=== PATIENT | female | born 1985 | race Caucasian/White ===

== ENCOUNTER 2016-10-11 12:35 | Emergency (ER) | payer MEDICAID ==
[~2016-10-11] VITALS: Ht 170.2 cm; Wt 61.5 kg
[~2016-10-11 12:35] MED LIST: DICL50TA3 PO; METH750T2 PO
[2016-10-11 13:35] VITALS: BP 121/66; PULSE 85; RESP 16; TEMP 98.1; O2SAT 100
--- NOTE | 2016-10-11 13:40 | PD ---
HPI Chief Complaint: Pain: Acute or Chronic Time Seen by Provider: 13:36 Travel History International Travel<30 days: No Contact w/Intl Traveler<30days: No Traveled to known affect area: No History of Present Illness HPI 31-year-old female with no significant past medical issues, presents to the ER today for 5 days history of left anterior chest wall pains that she rates currently an 8 out of 10, worsens with movements and deep breaths. She denies any coughing, shortness of breath, fevers, nausea, vomiting, or any other symptoms. She states that she had been diagnosed with costochondritis about 2 years ago but it was in the posterior part of her chest wall. Modifying Factors: Worse with movement and deep breaths Associated Signs & Symptoms: Left-sided chest wall pains Risk Factors: None PFSH Past Medical History Diminished Hearing: No Social History Alcohol Use: Yes (RARE) Tobacco Use: Yes (1/2 PPD) Substance Use: Yes (MARIJUANA, OCCASIONALLY) Allergies-Medications (Allergen,Severity, Reaction): Coded Allergies: No Known Allergies (Unverified , 10/11/16) Reported Meds & Prescriptions Reported Meds & Active Scripts Active No Active Prescriptions or Reported Medications Review of Systems Except as stated in HPI: all other systems reviewed are Neg Physical Exam Narrative GENERAL: Well-developed thin, young white female patient currently in moderate distress secondary to pain. Awake and oriented 3. Sitting up. SKIN: Warm and dry. HEAD: Atraumatic. Normocephalic. EYES: Pupils equal and round. No scleral icterus. No injection or drainage. ENT: No nasal bleeding or discharge. Mucous membranes pink and moist. NECK: Trachea midline. No JVD. CARDIOVASCULAR: Regular rate and rhythm. No murmur appreciated. CHEST: Tender palpation of the left anterior lower rib area in the midclavicular line without deformity or crepitance. No retractions or use of accessory muscles. RESPIRATORY: No accessory muscle use. Clear to auscultation. Breath sounds equal bilaterally. GASTROINTESTINAL: Abdomen soft, non-tender, nondistended. Hepatic and splenic margins not palpable. MUSCULOSKELETAL: No obvious deformities. No clubbing. No cyanosis. No edema. NEUROLOGICAL: Awake and alert. No obvious cranial nerve deficits. Motor grossly within normal limits. Normal speech. PSYCHIATRIC: Appropriate mood and affect; insight and judgment normal. Data Data Last Documented VS Vital Signs Date Time Temp Pulse Resp B/P Pulse Ox O2 Delivery O2 Flow Rate FiO2 10/11/16 13:35 98.1 85 16 121/66 100 Orders Complete Blood Count With Diff (10/11/16 13:36) Comprehensive Metabolic Panel (10/11/16 13:36) D-Dimer (10/11/16 13:36) Prothrombin Time / Inr (Pt) (10/11/16 13:36) Act Partial Throm Time (Ptt) (10/11/16 13:36) Lipase (10/11/16 13:36) Chest, Single Ap (10/11/16 13:36) Ecg Monitoring (10/11/16 13:36) Bilateral Bp Monitoring (10/11/16 13:36) Iv Access Insert/Monitor (10/11/16 13:36) Oximetry (10/11/16 13:36) Oxygen Administration (10/11/16 13:36) Sodium Chloride 0.9% Flush (Ns Flush) (10/11/16 13:45) Ed Urine Pregnancytest Poc (10/11/16 13:36) Acetamin-Hydrocod 325-5 Mg ([place] 5-325 (10/11/16 13:45) Labs Laboratory Tests Test 10/11/16 13:55 White Blood Count 6.8 TH/MM3 Red Blood Count 4.89 MIL/MM3 Hemoglobin 14.6 GM/DL Hematocrit 42.8 % Mean Corpuscular Volume 87.6 FL Mean Corpuscular Hemoglobin 29.9 PG Mean Corpuscular Hemoglobin 34.1 % Concent Red Cell Distribution Width 11.5 % Platelet Count 206 TH/MM3 Mean Platelet Volume 9.8 FL Neutrophils (%) (Auto) 56.8 % Lymphocytes (%) (Auto) 28.8 % Monocytes (%) (Auto) 6.3 % Eosinophils (%) (Auto) 3.9 % Basophils (%) (Auto) 4.2 % Neutrophils # (Auto) 3.8 TH/MM3 Lymphocytes # (Auto) 2.0 TH/MM3 Monocytes # (Auto) 0.4 TH/MM3 Eosinophils # (Auto) 0.3 TH/MM3 Basophils # (Auto) 0.3 TH/MM3 CBC Comment DIFF FINAL Differential Comment Prothrombin Time 10.7 SEC Prothromb Time International 1.0 RATIO Ratio Activated Partial 27.3 SEC Thromboplast Time D-Dimer Quantitative (PE/DVT) 0.28 MG/L FEU Sodium Level 140 MEQ/L Potassium Level 4.3 MEQ/L Chloride Level 105 MEQ/L Carbon Dioxide Level 27.3 MEQ/L Anion Gap 8 MEQ/L Blood Urea Nitrogen 9 MG/DL Creatinine 0.83 MG/DL Estimat Glomerular Filtration 80 ML/MIN Rate Random Glucose 96 MG/DL Calcium Level 9.1 MG/DL Total Bilirubin 0.8 MG/DL Aspartate Amino Transf 11 U/L (AST/SGOT) Alanine Aminotransferase 16 U/L (ALT/SGPT) Alkaline Phosphatase 77 U/L Total Protein 8.2 GM/DL Albumin 4.1 GM/DL Lipase 88 U/L MDM Medical Decision Making Medical Screen Exam Complete: Yes Emergency Medical Condition: Yes Medical Record Reviewed: Yes Interpretation(s) Laboratory Tests Test 10/11/16 13:55 Red Cell Distribution Width 11.5 % (11.6-17.2) Basophils (%) (Auto) 4.2 % (0.0-2.0) Basophils # (Auto) 0.3 TH/MM3 (0-0.2) Estimat Glomerular Filtration 80 ML/MIN (>89) Rate Aspartate Amino Transf 11 U/L (15-37) (AST/SGOT) Differential Diagnosis Left anterior chest wall painscostochondritis versus pleurisy versus PE versus pneumothorax versus pneumonia versus pancreatitis Narrative Course D-dimer is negative. Chest x-ray did not show any signs of acute pulmonary processes. At this point, symptoms are consistent with a costochondritis. My plan would be to give her symptomatic relief or pain and have her follow-up with primary care physician. Return for any worsening in symptoms as necessary. The plan has discussed with her and she states understanding. Diagnosis Primary Impression: Costochondritis Med/Other Pt SpecificInfo: Prescription(s) given Scripts Ibuprofen (Motrin Ib)200 Mg [id number] Mg PO Q6H PRN (PAIN SCALE 1 TO 10) #28 TAB Ref 0 Prov:Reji Wyatt MD 10/11/16 Disposition: 01 DISCHARGE HOME Condition: Stable Reji Wyatt MD Oct 11, 2016 13:40
[2016-10-11] MEDS ORDERED: SODIUM CHLORIDE 0.9% FLUSH 10 ML FLUSH IVF PRN (13:45)
[2016-10-11] MEDS ORDERED: ACETAMINOPHEN/HYDROcodone 325 MG/5 MG TAB PO ONE (13:45)
[2016-10-11 14:05] LABS: AUTOMATED NEUTROPHIL # 3.8 TH/MM3 (1.8-7.7); BASOPHIL # 0.3 TH/MM3 (0-0.2); BASOPHIL % 4.2 % (0.0-2.0); EOSINOPHIL # 0.3 TH/MM3 (0-0.4); EOSINOPHIL % 3.9 % (0.0-4.0); HEMATOCRIT 42.8 % (35.0-46.0); HEMO FLAGS DIFF FINAL; LYMPH % 28.8 % (9.0-44.0); MEAN CELL VOLUME 87.6 FL (80.0-100.0); MEAN CORPUSCULAR HEMOGLOBIN 29.9 PG (27.0-34.0); MEAN CORPUSCULAR HGB CONC 34.1 % (32.0-36.0); MONO % 6.3 % (0.0-8.0); NEUT % 56.8 % (16.0-70.0); PLATELET COUNT 206 TH/MM3 (150-450); RED BLOOD COUNT 4.89 MIL/MM3 (4.00-5.30); RED CELL DISTRIBUTION WIDTH 11.5 % (11.6-17.2); WHITE BLOOD COUNT 6.8 TH/MM3 (4.0-11.0)
[2016-10-11 14:13] LABS: CHLORIDE 105 MEQ/L (98-107); POTASSIUM 4.3 MEQ/L (3.5-5.1); SODIUM (NA) 140 MEQ/L (136-145)
[2016-10-11 14:18] LABS: ANION GAP 8 MEQ/L (5-15); BICARBONATE 27.3 MEQ/L (21.0-32.0); BLOOD UREA NITROGEN 9 MG/DL (7-18)
[2016-10-11 14:20] LABS: ALT (GPT) 16 U/L (10-53); AST (GOT) 11 U/L (15-37); GLOMERULAR FILTRATION RATE 80 ML/MIN (>89)
[2016-10-11 14:22] LABS: TOTAL BILIRUBIN ADULT 0.8 MG/DL (0.2-1.0)
[2016-10-11 14:23] LABS: ALKALINE PHOSPHATASE 77 U/L (45-117)
[2016-10-11 14:27] LABS: APTT (PATIENT) 27.3 SEC (24.3-30.1); PROTHROMBIN TIME - PATIENT 10.7 SEC (9.8-11.6)
--- NOTE | 2016-10-11 14:29 | RADHPO ---
EXAM DATE/TIME: 10/11/2016 13:45 [facility] COMPARISON: CHEST SINGLE AP, November 11, 2015, 21:54. INDICATIONS : Patient states chest pains under left breast. MEDICAL HISTORY : None. SURGICAL HISTORY : None. ENCOUNTER: Initial ACUITY: 3 days PAIN SCORE: 6/10 LOCATION: Bilateral chest FINDINGS: A single view of the chest demonstrates the lungs to be symmetrically aerated without evidence of mas s, infiltrate or effusion. The cardiomediastinal contours are unremarkable. Osseous structures are intact. CONCLUSION: No acute cardiopulmonary process. Richard Garcia MD on October 11, 2016 at 14:26 Board Certified Radiologist. This report was verified electronically.
[2016-10-11] MEDS ORDERED: MOTR200T4 PO (14:39)
[2016-10-11 15:15] VITALS: BP 126/62; PULSE 86; RESP 16; O2SAT 97
== END 2016-10-11 15:15 | disposition home or self-care (01) ==
LOC: PHED 12:35
DX: M94.0 Chondrocostal junction syndrome [Tietze] (principal)
CPT/HCPCS: 71010; 80053; 83690; 85025; 85379; 85610; 85730; 99283

== ENCOUNTER 2016-10-16 17:13 | Emergency (ER) | payer MEDICAID, OTHER ==
[~2016-10-16] VITALS: Ht 170.2 cm; Wt 61.5 kg
[~2016-10-16 17:13] MED LIST changes: -DICL50TA3 PO; -METH750T2 PO; +MOTR200T4 PO
[2016-10-16 17:30] VITALS: BP 115/75; PULSE 101; RESP 16; TEMP 98.6; O2SAT 97
--- NOTE | 2016-10-16 17:43 | PD ---
HPI Chief Complaint: Musculoskeletal Complaint Time Seen by Provider: 17:40 Travel History International Travel<30 days: No Contact w/Intl Traveler<30days: No Traveled to known affect area: No History of Present Illness HPI 31-year-old female presents to emergency Department with worsening ongoing left-sided thoracic wall and chest pain. Patient states the pain is gotten worse and she was last here week ago. At that time she had a full workup including a d-dimer chest x-ray, and basic labs. Patient states increase mucus with cough which is clear. Patient states the pain is worse with deep inspiration and movement. Denies fever, nausea, vomiting, or urinary symptoms. She denies any lower extremity pain or swelling. Denies any recent long travel. She has no significant history of injuries to the area. She denies any rash to the area. Patient is a smoker. Pain is a 9/10 at worst with movement and deep breath, but is 6/10 if she's guarding it. She has no known drug allergies. PFSH Past Medical History Diminished Hearing: No ?: Not LMP: 10/07/16 Social History Alcohol Use: Yes (Occ.) Tobacco Use: Yes (07/25 PPD) Substance Use: Yes (Marijuana occ.) Allergies-Medications (Allergen,Severity, Reaction): Coded Allergies: No Known Allergies (Unverified , 10/16/16) Reported Meds & Prescriptions Reported Meds & Active Scripts Active Tramadol (Tramadol HCl) 50 Mg Tab 50 Mg PO Q6H PRN Prednisone 20 Mg Tab 20 Mg PO BID Motrin Ib (Ibuprofen) 200 Mg Tab 600 Mg PO Q6H PRN Review of Systems Except as stated in HPI: all other systems reviewed are Neg General / Constitutional: No: Fever Eyes: No: Visual changes HENT: No: Headaches Cardiovascular: Positive: Chest Pain or Discomfort (see history present illness.) Respiratory: Positive: Cough, Shortness of Breath, Pleuritic Pain, No: Wheezing, Sneezing, Orthopnea, Hemoptysis Gastrointestinal: No: Nausea (due to pleuritic pain.), Vomiting, Diarrhea, Abdominal Pain Genitourinary: No: Urgency, Frequency, Dysuria Musculoskeletal: No: Pain Skin: No Rash Neurologic: No: Weakness Psychiatric: No: Depression Endocrine: No: Polydipsia Hematologic/Lymphatic: No: Easy Bruising Physical Exam Narrative GENERAL: Patient appears in moderate distress. Patient states she preferred to stand is sitting or laying down makes her pain worse. SKIN: Warm and dry. Color. Normal turgor. No rash. HEAD: Atraumatic. Normocephalic. EYES: Pupils equal and round. No scleral icterus. No injection or drainage. ENT: No nasal bleeding or discharge. Mucous membranes pink and moist. TMs are normal bilaterally. Throat is normal. Pharynx is normal. Airway is patent. NECK: Trachea midline. Neck is supple nontender. CARDIOVASCULAR: Regular rate and rhythm. No murmurs gallops or rubs appreciated. RESPIRATORY: No accessory muscle use. Clear to auscultation. Breath sounds equal bilaterally. Question of egophony on the left lower lung field. Patient is tender with palpation along the posterior and lateral thoracic wall without deformity or crepitus noted signs of trauma. GASTROINTESTINAL: Abdomen soft, non-tender, nondistended. Hepatic and splenic margins not palpable. MUSCULOSKELETAL: Extremities without clubbing, cyanosis, or edema. No obvious deformities. NEUROLOGICAL: Awake and alert. No obvious cranial nerve deficits. Motor grossly within normal limits. Five out of 5 muscle strength in the arms and legs. Normal speech. PSYCHIATRIC: Appropriate mood and affect; insight and judgment normal. Data Data Last Documented VS Vital Signs Date Time Temp Pulse Resp B/P Pulse Ox O2 Delivery O2 Flow Rate FiO2 10/16/16 20:43 64 20 105/58 98 10/16/16 18:06 Room Air 10/16/16 17:30 98.6 Orders Electrocardiogram (10/16/16 17:45) Ckmb (Isoenzyme) Profile (10/16/16 17:45) Complete Blood Count With Diff (10/16/16 17:45) Comprehensive Metabolic Panel (10/16/16 17:45) Magnesium (Mg) (10/16/16 17:45) Prothrombin Time / Inr (Pt) (10/16/16 17:45) Act Partial Throm Time (Ptt) (10/16/16 17:45) Troponin I (10/16/16 17:45) Ecg Monitoring (10/16/16 17:45) Bilateral Bp Monitoring (10/16/16 17:45) Iv Access Insert/Monitor (10/16/16 17:45) Oximetry (10/16/16 17:45) Oxygen Administration (10/16/16 17:45) Sodium Chloride 0.9% Flush (Ns Flush) (10/16/16 17:45) Ct Pulmonary Angiogram (10/16/16 17:45) Lipase (10/16/16 17:45) Urinalysis - C+S If Indicated (10/16/16 17:45) Sodium Chlor 0.9% 1000 Ml Inj (Ns 1000 M (10/16/16 17:45) Ketorolac Inj (Toradol Inj) (10/16/16 17:45) Iohexol 350 Inj (Omnipaque 350 Inj) (10/16/16 18:53) Prednisone (Deltasone) (10/16/16 20:45) Labs Laboratory Tests Test 10/16/16 10/16/16 17:55 18:05 Urine Collection Type CLEAN CATCH Urine Color YELLOW Urine Turbidity CLEAR Urine pH 5.5 Urine Specific [place] 1.009 Urine Protein NEG mg/dL Urine Glucose (UA) NEG mg/dL Urine Ketones NEG mg/dL Urine Occult Blood SMALL Urine Nitrite NEG Urine Bilirubin NEG Urine Leukocyte Esterase NEG Urine RBC 0-3 /hpf Urine WBC 0-2 /hpf Urine Squamous Epithelial > 8 /hpf Cells Urine Bacteria RARE /hpf Microscopic Urinalysis Comment CULT NOT INDICATED Urine Collection Time 17:55 White Blood Count 7.2 TH/MM3 Red Blood Count 4.34 MIL/MM3 Hemoglobin 13.3 GM/DL Hematocrit 37.8 % Mean Corpuscular Volume 87.1 FL Mean Corpuscular Hemoglobin 30.7 PG Mean Corpuscular Hemoglobin 35.3 % Concent Red Cell Distribution Width 11.7 % Platelet Count 188 TH/MM3 Mean Platelet Volume 9.6 FL Neutrophils (%) (Auto) 54.5 % Lymphocytes (%) (Auto) 34.4 % Monocytes (%) (Auto) 6.6 % Eosinophils (%) (Auto) 3.8 % Basophils (%) (Auto) 0.7 % Neutrophils # (Auto) 3.8 TH/MM3 Lymphocytes # (Auto) 2.5 TH/MM3 Monocytes # (Auto) 0.5 TH/MM3 Eosinophils # (Auto) 0.3 TH/MM3 Basophils # (Auto) 0.1 TH/MM3 CBC Comment DIFF FINAL Differential Comment Prothrombin Time 10.9 SEC Prothromb Time International 1.0 RATIO Ratio Activated Partial 27.8 SEC Thromboplast Time Sodium Level 139 MEQ/L Potassium Level 3.7 MEQ/L Chloride Level 104 MEQ/L Carbon Dioxide Level 27.3 MEQ/L Anion Gap 8 MEQ/L Blood Urea Nitrogen 8 MG/DL Creatinine 0.87 MG/DL Estimat Glomerular Filtration 76 ML/MIN Rate Random Glucose 87 MG/DL Calcium Level 8.8 MG/DL Magnesium Level 2.1 MG/DL Total Bilirubin 0.5 MG/DL Aspartate Amino Transf 12 U/L (AST/SGOT) Alanine Aminotransferase 14 U/L (ALT/SGPT) Alkaline Phosphatase 73 U/L Total Creatine Kinase 75 U/L Troponin I LESS THAN 0.02 NG/ML Total Protein 8.1 GM/DL Albumin 4.0 GM/DL Lipase 97 U/L MDM Medical Decision Making Medical Screen Exam Complete: Yes Emergency Medical Condition: Yes Differential Diagnosis Worsening left sided thoracic wall pain. Pleuritis. Pneumonia. Pulmonary embolism. Endocarditis. Narrative Course Patient appears medically stable at time of exam. Labs ordered including CBC, CMP, cardiac panel, lipase, and urinalysis. EKG is ordered. CTA of the chest is ordered. IV access is obtained patient is given 30 mg Toradol IV. All labs are within normal limits. EKG is also within normal limits and reviewed with Dr. Abarca. CTA is negative for PE or other acute findings. Patient will be treated for costochondritis with prednisone 20 mg twice a day for 7 days. Patient is also given tramadol 50 mg one every 6 hours when necessary #20. Patient should follow-up with a local primary care physician if symptoms continue or do not improve. Diagnosis Primary Impression: Costochondritis Referrals: Primary Care Physician Patient Instructions: Costochondritis (ED), General Instructions Departure Forms: Work Release Enter return to work date: Oct 18, 2016 Additional Instructions: All labs are within normal limits. EKG is also within normal limits and reviewed with Dr. Abarca. CTA is negative for PE or other acute findings. Patient will be treated for costochondritis with prednisone 20 mg twice a day for 7 days. Patient is also given tramadol 50 mg one every 6 hours when necessary #20. Patient should follow-up with a local primary care physician if symptoms continue or do not improve. Med/Other Pt SpecificInfo: Prescription(s) given Scripts Tramadol 50 Mg Tab50 Mg PO Q6H PRN (PAIN) #20 TAB Prov:MacMahonHarsha MD 10/16/16 Prednisone 20 Mg Tab20 Mg PO BID #14 TAB Prov:Harsha Holbrook MD 10/16/16 Disposition: 01 DISCHARGE HOME Condition: Stable Conor Naqvi Oct 16, 2016 17:43
[2016-10-16] MEDS ORDERED: SODIUM CHLORIDE 0.9% FLUSH 10 ML FLUSH IVF PRN (17:45)
[2016-10-16] MEDS ORDERED: SODIUM CHLOR 0.9% 1000 ML INJ 1,000 ML IV SCH (17:45)
[2016-10-16] MEDS ORDERED: KETOROLAC TROMETHAMINE 30 MG/ML (IVP) VIAL IVP ONE (17:45)
[2016-10-16 18:02] LABS: BLOOD, URINE SMALL (NEG); GLUCOSE,URINE NEG (NEG); KETONE, URINE NEG (NEG); NITRITE,URINE NEG (NEG); PH, URINE 5.5 (5.0-8.5)
[2016-10-16 18:06] VITALS: BP_SYST 106; BP_SYST 113; BP_DIAS 70; BP_DIAS 83; O2SAT 98
[2016-10-16 18:13] LABS: AUTOMATED NEUTROPHIL # 3.8 TH/MM3 (1.8-7.7); BASOPHIL # 0.1 TH/MM3 (0-0.2); BASOPHIL % 0.7 % (0.0-2.0); EOSINOPHIL # 0.3 TH/MM3 (0-0.4); EOSINOPHIL % 3.8 % (0.0-4.0); HEMATOCRIT 37.8 % (35.0-46.0); HEMO FLAGS DIFF FINAL; LYMPH % 34.4 % (9.0-44.0); LYMPHOCYTE # 2.5 TH/MM3 (1.0-4.8); MEAN CELL VOLUME 87.1 FL (80.0-100.0); MEAN CORPUSCULAR HEMOGLOBIN 30.7 PG (27.0-34.0); MEAN CORPUSCULAR HGB CONC 35.3 % (32.0-36.0); MONO % 6.6 % (0.0-8.0); NEUT % 54.5 % (16.0-70.0); PLATELET COUNT 188 TH/MM3 (150-450); RED BLOOD COUNT 4.34 MIL/MM3 (4.00-5.30); RED CELL DISTRIBUTION WIDTH 11.7 % (11.6-17.2); WHITE BLOOD COUNT 7.2 TH/MM3 (4.0-11.0)
[2016-10-16 18:15] LABS: METHOD OF COLLECTION CLEAN CATCH; URINE COLOR YELLOW (YELLW/STRAW)
[2016-10-16 18:16] LABS: BACTERIA, URINE RARE /hpf; COMMENT (UR) CULT NOT INDICATED; CULTURE IF INDICATED CULT NOT INDICATED; RBC, URINE 0-3 /hpf (0-3); SQUAMOUS EPITHELIAL CELL URINE > 8 /hpf (0-5); WBC, URINE 0-2 /hpf (0-5)
[2016-10-16 18:21] LABS: CHLORIDE 104 MEQ/L (98-107); POTASSIUM 3.7 MEQ/L (3.5-5.1); SODIUM (NA) 139 MEQ/L (136-145)
[2016-10-16 18:27] LABS: ANION GAP 8 MEQ/L (5-15); APTT (PATIENT) 27.8 SEC (24.3-30.1); BICARBONATE 27.3 MEQ/L (21.0-32.0); BLOOD UREA NITROGEN 8 MG/DL (7-18); MAGNESIUM 2.1 MG/DL (1.5-2.5); PROTHROMBIN TIME - PATIENT 10.9 SEC (9.8-11.6)
[2016-10-16 18:29] LABS: ALT (GPT) 14 U/L (10-53); AST (GOT) 12 U/L (15-37)
[2016-10-16 18:30] LABS: GLOMERULAR FILTRATION RATE 76 ML/MIN (>89)
[2016-10-16 18:31] LABS: TOTAL BILIRUBIN ADULT 0.5 MG/DL (0.2-1.0)
[2016-10-16 18:32] LABS: ALKALINE PHOSPHATASE 73 U/L (45-117)
[2016-10-16] MEDS ORDERED: IOHEXOL 350 MG/ML 10 ML VIAL (for RAD DIAG) IV ONE (18:53)
[2016-10-16 18:57] LABS: CREATINE KINASE 75 U/L (26-192)
--- NOTE | 2016-10-16 20:30 | RADHPO ---
EXAM DATE/TIME: 10/16/2016 18:37 [facility] COMPARISON: No previous studies available for comparison. INDICATIONS : Left sided chest pain for a week. IV CONTRAST: 73 cc Omnipaque 350 (iohexol) IV RADIATION DOSE: 6.62 CTDIvol (mGy) MEDICAL HISTORY : None SURGICAL HISTORY : None. ENCOUNTER: Initial ACUITY: 1 week PAIN SCALE: 7/10 LOCATION: Left chest TECHNIQUE: Volumetric scanning of the chest was performed using a pulmonary embolism protocol MIP images were re constructed. Using automated exposure control and adjustment of the mA and/or kV according to patien t size, radiation dose was kept as low as reasonably achievable to obtain optimal diagnostic quality images. FINDINGS: PULMONARY ARTERIES: No filling defects are seen in the pulmonary arteries through the segmental level. LUNGS: There is no consolidation or pneumothorax . No concerning pulmonary nodule is visualized. PLEURAE: There is no pleural thickening or pleural effusion. MEDIASTINUM: There is good visualization of the great vessels of the middle mediastinum. No evidence of mediastin al or hilar adenopathy/mass. MUSCULOSKELETAL: Within normal limits for patient age. MISCELLANEOUS: The visualized upper abdominal organs demonstrate no acute abnormality. CONCLUSION: Normal examination for a patient of this age. Brady Townsend MD on October 16, 2016 at 20:28 Board Certified Radiologist. This report was verified electronically.
[2016-10-16] MEDS ORDERED: PRED20 PO (20:34)
[2016-10-16 20:43] VITALS: BP 105/58
[2016-10-16] MEDS ORDERED: predniSONE 20 MG TAB PO ONE (20:45)
[2016-10-16] MEDS ORDERED: TRAM50TA PO (21:08)
--- NOTE | 2016-10-17 14:02 | EKG ---
Date Performed: 10/16/2016 Time Performed: 17:55:02 PTAGE: 31 years EKG: Sinus arrhythmia rSr'(V1) - probable normal variant ST junctional depression is nonspecific Borderline ECG NO PREVIOUS TRACING DOCTOR: Jeremias Remy Interpretating Date/Time 10/17/2016 14:01:19
== END 2016-10-16 21:11 | disposition home or self-care (01) ==
LOC: PHEFT 17:13
DX: M94.0 Chondrocostal junction syndrome [Tietze] (principal); R05 Cough; I49.8 Other specified cardiac arrhythmias; F17.210 Nicotine dependence, cigarettes, uncomplicated
CPT/HCPCS: 71275; 80053; 81001; 82550; 83690; 83735; 84484; 85025; 85610; 85730; 93005; 96374; 99284; J1885; J7030; J7512; Q9967